=== PATIENT | male | born 1960 | race Two or more races ===

== ENCOUNTER 2024-02-26 11:47 | Emergency (ER) | payer OTHER ==
[~2024-02-26] VITALS: Ht 167.6 cm; Wt 81.8 kg
[2024-02-26 12:11] VITALS: BP 135/77; PULSE 104; RESP 16; TEMP 99; O2SAT 96
== END 2024-02-26 14:37 ==
LOC: EMS 11:55
DX: J43.9 Emphysema, unspecified (principal); M47.896 Other spondylosis, lumbar region; Z94.4 Liver transplant status
CPT/HCPCS: 71045; 74176; 99284

== ENCOUNTER 2024-03-05 21:59 | Inpatient (IN) | payer OTHER ==
[~2024-03-05] VITALS: Ht 167.6 cm; Wt 79.5 kg
[2024-03-05 23:03] LABS: BASOPHILS % (AUTO) 0.7 % (0.0-2.0); EOSINOPHILS % (AUTO) 6.7 % (1.0-6.0); HEMATOCRIT 40.9 % (41-53); HEMOGLOBIN 13.7 g/dL (13.5-17.5); LYMPHOCYTES # (AUTO) 2.5 K/uL (1.0-4.8); LYMPHOCYTES % (AUTO) 27.7 % (22.0-44.0); MEAN CORPUSCULAR HEMOGLOBIN 31.4 pg (26.0-34.0); MEAN CORPUSCULAR HGB CONC 33.5 G/dL (31.0-37.0); MEAN CORPUSCULAR VOLUME 94 fL (80-100); MONOCYTES # (AUTO) 0.9 K/uL (0.1-1.0); MONOCYTES % (AUTO) 10.1 % (2.0-9.0); NEUTROPHILS # (AUTO) 4.9 K/uL (1.8-7.7); NEUTROPHILS % (AUTO) 54.8 % (40.0-70.0); PLATELET COUNT (AUTO) 250 K/uL (150-450); RED BLOOD CELL COUNT(AUTO) 4.37 MIL/uL (4.50-5.90); RED CELL DISTRIBUTION WIDTH 14.2 % (11.5-14.5); WHITE BLOOD COUNT (AUTO) 8.9 K/uL (4.5-11.0)
[2024-03-05 23:04] LABS: APPEARANCE,URINE CLEAR (CLEAR); BILIRUBIN,URINE NEGATIVE (NEGATIVE); COLOR,URINE LIGHT YELLOW (YELLOW); GLUCOSE, URINE (UA) NEGATIVE (NEGATIVE); KETONES,URINE NEGATIVE (NEGATIVE); LEUKOCYTE ESTERASE ,URINE NEGATIVE (NEGATIVE); NITRATE,URINE NEGATIVE (NEGATIVE); OCCULT BLOOD,URINE NEGATIVE (NEGATIVE); PROTEIN,URINE NEGATIVE (NEGATIVE); SPECIFIC GRAVITIY, URINE 1.018 (1.003-1.030); UROBILINOGEN,URINE <=1.0 mg/dL (<=1.0)
[2024-03-05 23:12] LABS: CALCIUM, TOTAL 8.2 mg/dL (8.8-10.5); CREATININE 1.99 mg/dL (0.60-1.30); POTASSIUM 4.8 mmol/L (3.5-5.1)
[2024-03-05 23:18] LABS: BILIRUBIN,DIRECT 0.1 mg/dL (0.00-0.20); BILIRUBIN,TOTAL 0.3 mg/dL (0.1-1.0); TOTAL PROTEIN, SERUM 7.6 g/dL (6.4-8.2)
[2024-03-06] MEDS: MELATONIN 5 MG TABLET PO ONE (00:18)
[2024-03-06] MEDS ORDERED: MAGNESIUM HYDROXIDE SUSPENSION 30 ML UDCUP PO PRN (01:00)
[2024-03-06] MEDS ORDERED: ONDANSETRON HCL 4 MG/2 ML VIAL IVP PRN (01:00)
[2024-03-06] MEDS: SODIUM CHLORIDE 0.9% 1,000 ML IV ONE ×2 (01:22→10:28)
[2024-03-06] MEDS: ACETAMINOPHEN 325 MG TABLET PO PRN (02:05)
[2024-03-06 02:50] VITALS: BP 134/72; PULSE 67; RESP 18; TEMP 97.7; O2SAT 97
[2024-03-06 08:10] VITALS: BP 139/76; PULSE 78; RESP 16; TEMP 98; O2SAT 100
[2024-03-06 08:11] LABS: CALCIUM, TOTAL 7.8 mg/dL (8.8-10.5); CREATININE 1.62 mg/dL (0.60-1.30); POTASSIUM 4.8 mmol/L (3.5-5.1)
[2024-03-06] MEDS: DOCUSATE SODIUM 100 MG CAPSULE PO SCH (08:39)
[2024-03-06] MEDS: HEPARIN SODIUM,PORCINE 5,000 UNITS/ML VIAL SQ SCH (08:39)
[2024-03-06] MEDS: [UNRECOGNIZED DRUG - REMARK] PO SCH ×2 (08:39→20:44)
[2024-03-06] MEDS: FAMOTIDINE 20 MG TABLET PO SCH (08:39)
[2024-03-06] MEDS: PredniSONE 5 MG TABLET PO SCH (10:28)
[2024-03-06] MEDS: TACROLIMUS 1 MG CAPSULE PO SCH (10:28)
[2024-03-06 16:00] VITALS: BP 121/75; PULSE 83; RESP 18; TEMP 98.5; O2SAT 97
[2024-03-06 19:45] VITALS: BP 139/78; PULSE 78; RESP 18; TEMP 98.3; O2SAT 96
[2024-03-06] MEDS: ZOLPIDEM TARTRATE 5 MG TABLET PO PRN (20:49)
[2024-03-07 05:10] VITALS: BP 139/72; PULSE 77; RESP 18; TEMP 97.7; O2SAT 96
[2024-03-07 07:34] LABS: CALCIUM, TOTAL 8.2 mg/dL (8.8-10.5); CREATININE 1.29 mg/dL (0.60-1.30); POTASSIUM 4.7 mmol/L (3.5-5.1)
[2024-03-07 08:08] VITALS: BP 158/84; PULSE 85; RESP 18; TEMP 98.2; O2SAT 98
[2024-03-07] MEDS ORDERED: CYCL25CA PO (10:59)
[2024-03-07] MEDS ORDERED: ACET-2247 PO (11:00)
[2024-03-07] MEDS ORDERED: PRED-549 PO (11:00)
[2024-03-07] MEDS ORDERED: TACR1CAP12 PO (11:00)
[2024-03-07] MEDS ORDERED: MAGN-169 PO (11:01)
== END 2024-03-07 15:20 | DRG 683 ==
LOC: EMS 22:01 → EDH 03-06 01:09 → UNDOADMIN 03-06 01:09 → 6S 03-06 02:30
PROVIDERS: ADMIT Internal Medicine; ATTEND Internal Medicine
DX: N17.9 Acute kidney failure, unspecified (principal); Z94.4 Liver transplant status; K76.9 Liver disease, unspecified
CPT/HCPCS: 76705; 80048; 80076; 81003; 83690; 85025; 99285; J1644; J7030; J7507; J7515

== ENCOUNTER 2024-03-29 11:23 | Inpatient (IN) | payer OTHER ==
[~2024-03-29] VITALS: Ht 167.6 cm; Wt 82.4 kg
[~2024-03-29 11:23] MED LIST: ACET-2247 PO; CYCL25CA PO; MAGN-169 PO; PRED-549 PO; TACR1CAP12 PO
[2024-03-29 14:31] LABS: BASOPHILS % (AUTO) 0.5 % (0.0-2.0); EOSINOPHILS % (AUTO) 0.4 % (1.0-6.0); HEMATOCRIT 44.5 % (41-53); HEMOGLOBIN 14.8 g/dL (13.5-17.5); LYMPHOCYTES # (AUTO) 1.6 K/uL (1.0-4.8); LYMPHOCYTES % (AUTO) 12.3 % (22.0-44.0); MEAN CORPUSCULAR HEMOGLOBIN 31.2 pg (26.0-34.0); MEAN CORPUSCULAR HGB CONC 33.2 G/dL (31.0-37.0); MEAN CORPUSCULAR VOLUME 94 fL (80-100); MONOCYTES # (AUTO) 0.4 K/uL (0.1-1.0); MONOCYTES % (AUTO) 3.4 % (2.0-9.0); NEUTROPHILS # (AUTO) 10.5 K/uL (1.8-7.7); NEUTROPHILS % (AUTO) 83.4 % (40.0-70.0); PLATELET COUNT (AUTO) 273 K/uL (150-450); RED BLOOD CELL COUNT(AUTO) 4.73 MIL/uL (4.50-5.90); RED CELL DISTRIBUTION WIDTH 13.8 % (11.5-14.5); WHITE BLOOD COUNT (AUTO) 12.6 K/uL (4.5-11.0)
[2024-03-29 14:48] LABS: ALBUMIN 3.3 g/dL (3.4-5.0); BILIRUBIN,DIRECT 0.1 mg/dL (0.00-0.20); BILIRUBIN,TOTAL 0.3 mg/dL (0.1-1.0); CALCIUM, TOTAL 8.8 mg/dL (8.8-10.5); CREATININE 1.68 mg/dL (0.60-1.30); TOTAL PROTEIN, SERUM 7.8 g/dL (6.4-8.2)
[2024-03-29 14:49] LABS: POTASSIUM 6.4 mmol/L (3.5-5.1)
[2024-03-29 14:50] LABS: TROPONIN I-HIGH SENSITIVITY 4 ng/L (<76)
[2024-03-29] MEDS: CALCIUM GLUCONATE 1,000 MG in DEXTROSE 5%-WATER 50 ML IV ONE (15:08)
[2024-03-29] MEDS: FUROSEMIDE 40 MG/4 ML VIAL IVP ONE (15:09)
[2024-03-29] MEDS: SODIUM CHLORIDE 0.9% 500 ML IV ONE (15:09)
[2024-03-29] MEDS: SODIUM BICARBONATE [ADULT] 8.4% 50 MEQ/50 ML SYRINGE IVP ONE (15:09)
[2024-03-29] MEDS: SODIUM ZIRCONIUM CYCLOSILICATE 5 GM POWDER PACKET PO ONE (15:09)
[2024-03-29] MEDS: DEXTROSE 50%-WATER 25 GM/50 ML SYRINGE IVP ONE (15:16)
[2024-03-29] MEDS: INSULIN REGULAR, HUMAN 100 UNITS/ML IVP ONE (15:19)
[2024-03-29] MEDS ORDERED: AMLO-258 PO (15:30)
[2024-03-29] MEDS ORDERED: OMEP20 PO (15:30)
[2024-03-29] MEDS ORDERED: DICL100G60 TP (15:30)
[2024-03-29] MEDS ORDERED: LOSA-381 PO (15:30)
[2024-03-29] MEDS ORDERED: AMIT25TA10 PO (15:30)
[2024-03-29] MEDS ORDERED: 0.9% SODIUM CHLORIDE 5 ML NEB SOLUTION NEB ONE (15:56)
[2024-03-29 16:00] LABS: APPEARANCE,URINE CLEAR (CLEAR); BILIRUBIN,URINE NEGATIVE (NEGATIVE); COLOR,URINE LIGHT YELLOW (YELLOW); GLUCOSE, URINE (UA) NEGATIVE (NEGATIVE); KETONES,URINE NEGATIVE (NEGATIVE); LEUKOCYTE ESTERASE ,URINE NEGATIVE (NEGATIVE); NITRATE,URINE NEGATIVE (NEGATIVE); OCCULT BLOOD,URINE NEGATIVE (NEGATIVE); PROTEIN,URINE NEGATIVE (NEGATIVE); SPECIFIC GRAVITIY, URINE 1.017 (1.003-1.030); UROBILINOGEN,URINE <=1.0 mg/dL (<=1.0)
[2024-03-29] MEDS: ALBUTEROL SULFATE 2.5 MG/0.5 ML NEB SOLUTION NEB ONE (16:04)
[2024-03-29 16:08] VITALS: PULSE 84; RESP 20; O2SAT 98
[2024-03-29 16:14] LABS: BACTERIA,URINE None Seen /HPF (None Seen); RBC,URINE None Seen /HPF (0-2); SQUAMOUS EPITHELIAL CELL,UR None Seen /LPF (None Seen); WBC,URINE None Seen /HPF (0-5)
[2024-03-29 16:20] VITALS: PULSE 86; RESP 20; O2SAT 100
[2024-03-29] MEDS ORDERED: BISACODYL 10 MG RECTAL RECTAL SUPPOSITORY PR PRN (16:30)
[2024-03-29] MEDS ORDERED: ACETAMINOPHEN 325 MG TABLET PO PRN (16:30)
[2024-03-29] MEDS ORDERED: ONDANSETRON HCL 4 MG/2 ML VIAL IVP PRN (16:30)
[2024-03-29] MEDS ORDERED: IPRATROPIUM BROMIDE 0.5 MG/2.5 ML NEB SOLUTION NEB PRN (16:30)
[2024-03-29] MEDS ORDERED: ALBUTEROL SULFATE 2.5 MG/0.5 ML NEB SOLUTION NEB PRN (16:30)
[2024-03-29] MEDS ORDERED: MAGNESIUM HYDROXIDE SUSPENSION 30 ML UDCUP PO PRN ×2 (16:30)
[2024-03-29 17:28] LABS: CALCIUM, TOTAL 8.6 mg/dL (8.8-10.5); CREATININE 1.52 mg/dL (0.60-1.30); POTASSIUM 5.2 mmol/L (3.5-5.1)
[2024-03-29 20:30] VITALS: BP 147/80; PULSE 85; RESP 19; TEMP 97.7; O2SAT 100
[2024-03-29] MEDS: HEPARIN SODIUM,PORCINE 5,000 UNITS/ML VIAL SQ SCH (22:56)
[2024-03-29] MEDS: [UNRECOGNIZED DRUG - REMARK] PO SCH (22:59)
[2024-03-29] MEDS: AMITRIPTYLINE HCL 25 MG TABLET PO SCH (22:59)
[2024-03-29] MEDS: TACROLIMUS 1 MG CAPSULE PO SCH (22:59)
[2024-03-29] MEDS: ZOLPIDEM TARTRATE 5 MG TABLET PO PRN (23:03)
[2024-03-30 00:45] VITALS: BP 153/79; PULSE 89; RESP 20; TEMP 98.1; O2SAT 99
[2024-03-30 05:30] VITALS: BP 128/84; PULSE 98; RESP 18; TEMP 98.7; O2SAT 98
[2024-03-30 07:10] LABS: BASOPHILS % (AUTO) 0.9 % (0.0-2.0); EOSINOPHILS % (AUTO) 2.8 % (1.0-6.0); HEMOGLOBIN 14.3 g/dL (13.5-17.5); LYMPHOCYTES # (AUTO) 2.5 K/uL (1.0-4.8); LYMPHOCYTES % (AUTO) 28.6 % (22.0-44.0); MEAN CORPUSCULAR HEMOGLOBIN 32.1 pg (26.0-34.0); MEAN CORPUSCULAR HGB CONC 34.8 G/dL (31.0-37.0); MEAN CORPUSCULAR VOLUME 92 fL (80-100); MONOCYTES # (AUTO) 0.6 K/uL (0.1-1.0); MONOCYTES % (AUTO) 6.7 % (2.0-9.0); NEUTROPHILS # (AUTO) 5.4 K/uL (1.8-7.7); PLATELET COUNT (AUTO) 280 K/uL (150-450); RED BLOOD CELL COUNT(AUTO) 4.45 MIL/uL (4.50-5.90); RED CELL DISTRIBUTION WIDTH 13.6 % (11.5-14.5); WHITE BLOOD COUNT (AUTO) 8.8 K/uL (4.5-11.0)
[2024-03-30 07:26] LABS: CALCIUM, TOTAL 8.1 mg/dL (8.8-10.5); CREATININE 1.56 mg/dL (0.60-1.30); POTASSIUM 4.6 mmol/L (3.5-5.1)
[2024-03-30 08:42] VITALS: BP 114/73; PULSE 97; RESP 19; TEMP 98.7; O2SAT 97
[2024-03-30] MEDS: PredniSONE 5 MG TABLET PO SCH (09:00)
[2024-03-30] MEDS: AmLODIPine BESYLATE 10 MG TABLET PO SCH (09:01)
[2024-03-30] MEDS: OMEPRAZOLE 20 MG CAPSULE PO SCH (09:10)
[2024-03-30 12:06] VITALS: BP 132/73; PULSE 87; RESP 18; TEMP 98; O2SAT 96
[2024-03-30 15:56] VITALS: BP 126/63; PULSE 72; RESP 19; TEMP 97.4; O2SAT 96
[2024-03-30 19:44] VITALS: BP 111/70; PULSE 101; RESP 18; TEMP 98.5; O2SAT 95
[2024-03-31 02:05] VITALS: BP 127/79; PULSE 94; RESP 20; TEMP 97.8
[2024-03-31 05:50] VITALS: BP 135/83; PULSE 98; RESP 20; TEMP 97.7; O2SAT 98
[2024-03-31 08:06] LABS: CALCIUM, TOTAL 8.6 mg/dL (8.8-10.5); CREATININE 1.61 mg/dL (0.60-1.30); MAGNESIUM 1.8 mg/dL (1.80-2.40); PHOSPHORUS 3.5 mg/dL (2.5-4.9); POTASSIUM 5.2 mmol/L (3.5-5.1)
[2024-03-31 08:56] VITALS: BP 131/77; PULSE 81; RESP 19; TEMP 98; O2SAT 98
[2024-03-31 11:31] VITALS: BP 123/72; PULSE 106; RESP 20; TEMP 98.1; O2SAT 96
[2024-03-31 14:48] VITALS: BP 120/72; PULSE 97; RESP 20; TEMP 98; O2SAT 97
[2024-03-31] MEDS: SODIUM ZIRCONIUM CYCLOSILICATE 5 GM POWDER PACKET PO ONE (16:23)
[2024-04-01 13:06] LABS: CYCLOSPORINE A 77 ng/mL (100-400)
== END 2024-03-31 19:40 | DRG 641 ==
LOC: EMS 11:26 → EDH 16:25 → 5S 20:30
PROVIDERS: ADMIT Hospitalist; ATTEND Hospitalist
DX: E87.5 Hyperkalemia (principal); N17.9 Acute kidney failure, unspecified; Z94.4 Liver transplant status; K40.20 Bilateral inguinal hernia, without obstruction or gangrene, not specified as recurrent; I10 Essential (primary) hypertension; N40.0 Benign prostatic hyperplasia without lower urinary tract symptoms; F41.9 Anxiety disorder, unspecified; K21.9 Gastro-esophageal reflux disease without esophagitis; R79.89 Other specified abnormal findings of blood chemistry; T45.1X5A Adverse effect of antineoplastic and immunosuppressive drugs, initial encounter; Y92.89 Other specified places as the place of occurrence of the external cause
CPT/HCPCS: 71045; 74176; 80048; 80076; 80158; 81001; 83690; 83735; 84100; 84484; 85025; 93005; 93041; 99291; J0610; J1644; J1940; J3490; J7040; J7060; J7507; J7515; 36415-L1; 36415-TC; J7613